=== PATIENT | male | born 1990 | race Two or more races ===

== ENCOUNTER 2021-01-05 14:58 | Outpatient (CLI) | payer OTHER | END 2021-01-05 23:59 | disposition home or self-care (01) | LOC: RAD 14:58 | DX: M13.841 Other specified arthritis, right hand (principal) | CPT/HCPCS: 73130 ==

== ENCOUNTER 2021-04-12 08:45 | Outpatient (CLI) | payer OTHER | END 2021-04-12 23:59 | disposition home or self-care (01) | LOC: RAD 08:45 | DX: M13.861 Other specified arthritis, right knee (principal); M13.862 Other specified arthritis, left knee | CPT/HCPCS: 73564 ==